=== PATIENT | female | born 1960 | race African-American/Black ===

== ENCOUNTER 2018-10-12 13:13 | Emergency (ER) | payer OTHER ==
--- NOTE | 2018-10-12 14:17 | RAD REPORT ---
EXAM DESCRIPTION: RAD - Pelvis - 10/12/2018 1:58 pm CLINICAL HISTORY: Trauma, fall, pelvic and hip pain COMPARISON: None. TECHNIQUE: AP imaging of the pelvis was obtained. FINDINGS: No fracture of the bony pelvis. SI joints and pubic symphysis show minimal degenerative ch abel with no acute finding. Minimal degenerative change at each hip joint. No fracture or dislocation of either proximal femur. No suspicious soft tissue finding. IMPRESSION: Negative pelvis for acute finding
--- NOTE | 2018-10-12 14:18 | RAD REPORT ---
EXAM DESCRIPTION: RAD - Lumbar Spine 3 Views - 10/12/2018 2:02 pm CLINICAL HISTORY: Trauma, back pain, left hip pain COMPARISON: Lumbar spine October 2010 FINDINGS: A three-view lumbar spine examination was performed. Lumbar bodies are normal in height an d alignment. No fracture or acute bony process seen. L3-4 disc space narrowing is present progressive from 2010. Sclerotic changes involve the endplates at this disc level. Posterior endplate spurring e ncroaches into the central canal also appearing progressive from 2010. Degenerative changes have deve loped at the L4-5 disc level without a significant loss in disc height. This is new from the prior st udy. Facet joint degenerative changes are present. No pars defects identified. IMPRESSION: No compression fracture or acute lumbar finding. L3-4 and L4-5 significant degenerative disc disease progressive from 2010.
--- NOTE | 2018-10-12 14:20 | RAD REPORT ---
EXAM DESCRIPTION: RAD - Hip Left 2 View - 10/12/2018 1:58 pm CLINICAL HISTORY: Trauma, left hip pain COMPARISON: October 2010 FINDINGS: AP and frogleg views of the left hip were obtained. There is no fracture or dislocation. N o AVN or focal femoral head abnormality. Minimal hip joint degenerative changes are present not signi ficantly different from comparison. No periarticular abnormality. No suspicious soft tissue finding. IMPRESSION: Minimal degenerative change not significantly different from 2011. No acute finding.
--- NOTE | 2018-10-12 14:32 | EDPHYS ---
Physician Documentation [facility] Name: Savana Montiel Age: 58 yrs Sex: Female : 1960 Arrival Date: 10/12/2018 Time: 13:17 Bed 15 Private MD: ED Physician Andrés Guevara HPI: 10/12 13:29 This 58 yrs old Black Female presents to ER via Unassigned with complaints of Hip Pain. rn 13:29 The patient or guardian reports decreased range of motion, an injury, pain. that rn occurred at work, sustained from lifting or pulling, There is no obvious deformity, The patient is able to self ambulate. The patient is able to bear their full body weight. The complaints affect the left hip/groin. 13:30 Modifying factors: The symptoms are alleviated by remaining still, the symptoms are rn aggravated by any movement, weight bearing. Associated signs and symptoms: Loss of consciousness: the patient experienced no loss of consciousness, Pertinent negatives: abdominal pain, incontinence, weakness. Severity of symptoms: At their worst the symptoms were moderate, in the emergency department the symptoms are unchanged. The patient has not experienced similar symptoms in the past. Reports catching someone from falling, did not fall and suffer direct trauma, but did hear crack and immediate pain. Is ambulatory and hurts to walk. Is limping. Denies other trauma or pain. . Historical: - Allergies: 13:43 No Known Allergies; tw2 - Home Meds: 13:43 losartan 100 mg oral tab 1 tab once daily [Active]; carvedilol 25 mg oral tab 1 tab 2 tw2 times per day [Active]; atorvastatin 10 mg oral tab 1 tab once daily [Active]; nifedipine 30 mg Oral TbER 1 tab once daily [Active]; hydrochlorothiazide 25 mg Oral tab 1 tab once daily [Active]; Cymbalta 30 mg oral cpDR 1 cap once daily [Active]; gabapentin 100 mg oral cap 1 caps daily [Active]; amitriptyline 25 mg Oral tab 1 tab once daily [Active]; Tresiba FlexTouch U-100 100 unit/mL (3 mL) subcutaneous inpn 60 units daily for Type 2 Diabetes Mellitus [Active]; Trulicity 0.75 mg/0.5 mL subcutaneous pnij 0.5 mL once wkly [Active]; - PMHx: 13:43 Diabetes - IDDM; Hyperlipidemia; Hypertension; tw2 - PSHx: 13:43 Hysterectomy; Tubal ligation; Cholecystectomy; tw2 - Immunization history:: Adult Immunizations. - Social history:: Smoking status: . - Family history:: not pertinent. - Ebola Screening: : Patient denies exposure to infectious person. - Hospitalizations: : No recent hospitalization is reported. ROS: 13:30 Constitutional: Negative for fever, chills, and weight loss, Eyes: Negative for injury, rn pain, redness, and discharge, Neck: Negative for injury, pain, and swelling, Cardiovascular: Negative for chest pain, palpitations, and edema, Respiratory: Negative for shortness of breath, cough, wheezing, and pleuritic chest pain, Abdomen/GI: Negative for abdominal pain, nausea, vomiting, diarrhea, and constipation, Back: + left lower back pain : Negative for injury, bleeding, discharge, and swelling, MS/Extremity: + left hip pain Skin: Negative for injury, rash, and discoloration, Neuro: Negative for headache, weakness, numbness, tingling, and seizure. Exam: 13:30 Constitutional: This is a well developed, well nourished patient who is awake, alert, rn appears in pain MS/ Extremity: Pulses equal, no cyanosis. Neurovascular intact. Intact passive ROM, tender left hip and left perilumbar region, soft thighs without palpable hematoma. Neuro: Awake and alert, GCS 15, oriented to person, place, time, and situation. Cranial nerves II-XII grossly intact. Motor strength 5/5 in all extremities. Sensory grossly intact. Cerebellar exam normal. Normal gait. Vital Signs: 13:38 BP 123 / 76; Pulse 71; Resp 17; Temp 98.1(TE); Pulse Ox 100% on R/A; Weight 105.69 kg tw2 (R); Height 5 ft. 4 in. (162.56 cm); Pain 8/10; 14:39 BP 131 / 82; Pulse 76; Resp 17; Pulse Ox 100% on R/A; tw2 13:38 Body Mass Index 39.99 (105.69 kg, 162.56 cm) tw2 MDM: 13:25 Patient medically screened. rn 14:27 Differential diagnosis: hip fracture, femoral neck fracture, bursitis, arthritis, rn strain. Data reviewed: vital signs, nurses notes, radiologic studies, plain films, and as a result, I will discharge patient. Counseling: I had a detailed discussion with the patient and/or guardian regarding: the historical points, exam findings, and any diagnostic results supporting the discharge/admit diagnosis, radiology results, the need for outpatient follow up, to return to the emergency department if symptoms worsen or persist or if there are any questions or concerns that arise at home. Special discussion: I discussed with the patient/guardian in detail that at this point there is no indication for admission to the hospital. It is understood, however, that if the symptoms persist or worsen the patient needs to return immediately for re-evaluation. Based on the history and exam findings, there is no indication for further emergent testing or inpatient evaluation. I discussed with the patient/guardian the need to see the orthopedic surgeon for further evaluation of the symptoms. I discussed with the patient/guardian the need to see the primary care provider for further evaluation of the symptoms. 10/12 13:29 Order name: XRAY Hip LEFT 2 view; Complete Time: 14:26 rn 10/12 13:29 Order name: XRAY Pelvis; Complete Time: 14:26 rn 10/12 13:29 Order name: XRAY Lumbar Spine (3 Views); Complete Time: 14:26 rn Administered Medications: No medications were administered Disposition: 10/12/18 14:31 Discharged to Home. Impression: Strain of muscle, fascia and tendon of left hip, Strain of muscle, fascia and tendon of lower back. - Condition is Stable. - Discharge Instructions: Back Pain, Adult, Muscle Strain, Hip Pain. - Prescriptions for Tylenol- Codeine #3 300-30 mg Oral Tablet - take 1 tablet by ORAL route every 6 hours As needed; 20 tablet. Cyclobenzaprine 10 mg Oral Tablet - take 1 tablet by ORAL route every 8-12 hours As needed; 20 tablet. - Medication Reconciliation Form, Thank You Letter, Antibiotic Education, Prescription Opioid Use form. - Follow up: Private Physician; When: As needed; Reason: Recheck today's complaints, Re-evaluation by your physician. - Problem is new. - Symptoms have improved. Signatures: Dispatcher [employer] EDAndrés Carrera MD MD rn Wise, Tara, RN RN tw2 Corrections: (The following items were deleted from the chart) 14:40 14:31 10/12/2018 14:31 Discharged to Home. Impression: Strain of muscle, fascia and tw2 tendon of left hip; Strain of muscle, fascia and tendon of lower back. Condition is Stable. Forms are Medication Reconciliation Form, Thank You Letter, Antibiotic Education, Prescription Opioid Use. Follow up: Private Physician; When: As needed; Reason: Recheck today's complaints, Re-evaluation by your physician. Problem is new. Symptoms have improved. rn
--- NOTE | 2018-10-12 14:32 | ER ---
Nurse's Notes [facility] Name: Savana Montiel Age: 58 yrs Sex: Female : 1960 Arrival Date: 10/12/2018 Time: 13:17 Bed 15 Private MD: Diagnosis: Strain of muscle, fascia and tendon of left hip;Strain of muscle, fascia and tendon of lower back Presentation: 10/12 13:25 Presenting complaint: Patient states: I was helping my patient from falling and i dont tw2 know what happened but i heard something pop in my LEFT hip and the pain is into my groin and buttocks. Transition of care: patient was not received from another setting of care. Onset of symptoms was October 12, 2018. Risk Assessment: Do you want to hurt yourself or someone else? Patient reports no desire to harm self or others. Initial Sepsis Screen: Does the patient meet any 2 criteria? No. Patient's initial sepsis screen is negative. Does the patient have a suspected source of infection? No. Patient's initial sepsis screen is negative. Care prior to arrival: None. 13:25 Method Of Arrival: Ambulatory tw2 13:25 Acuity: JEAN 4 tw2 Triage Assessment: 13:37 General: Appears in no apparent distress. well groomed, Behavior is calm, cooperative, tw2 appropriate for age. Pain: Complains of pain in LEFT hip and groin. EENT: No signs and/or symptoms were reported regarding the EENT system. Neuro: Level of Consciousness is awake, alert, obeys commands, Oriented to person, place, time, situation. Cardiovascular: Denies chest pain, shortness of breath, Capillary refill < 3 seconds Patient's skin is warm and dry. Respiratory: Airway is patent Respiratory effort is even, unlabored, Respiratory pattern is regular, symmetrical. GI: No signs and/or symptoms were reported involving the gastrointestinal system. : No signs and/or symptoms were reported regarding the genitourinary system. Derm: Musculoskeletal: Circulation, motion, and sensation intact. Reports pain in LEFT hip. Historical: - Allergies: 13:43 No Known Allergies; tw2 - Home Meds: 13:43 losartan 100 mg oral tab 1 tab once daily [Active]; carvedilol 25 mg oral tab 1 tab 2 tw2 times per day [Active]; atorvastatin 10 mg oral tab 1 tab once daily [Active]; nifedipine 30 mg Oral TbER 1 tab once daily [Active]; hydrochlorothiazide 25 mg Oral tab 1 tab once daily [Active]; Cymbalta 30 mg oral cpDR 1 cap once daily [Active]; gabapentin 100 mg oral cap 1 caps daily [Active]; amitriptyline 25 mg Oral tab 1 tab once daily [Active]; Tresiba FlexTouch U-100 100 unit/mL (3 mL) subcutaneous inpn 60 units daily for Type 2 Diabetes Mellitus [Active]; Trulicity 0.75 mg/0.5 mL subcutaneous pnij 0.5 mL once wkly [Active]; - PMHx: 13:43 Diabetes - IDDM; Hyperlipidemia; Hypertension; tw2 - PSHx: 13:43 Hysterectomy; Tubal ligation; Cholecystectomy; tw2 - Immunization history:: Adult Immunizations. - Social history:: Smoking status: . - Family history:: not pertinent. - Ebola Screening: : Patient denies exposure to infectious person. - Hospitalizations: : No recent hospitalization is reported. Screenin:30 Abuse screen: Denies threats or abuse. Nutritional screening: No deficits noted. tw2 Tuberculosis screening: No symptoms or risk factors identified. Fall Risk None identified. Assessment: 13:46 Reassessment: see triage assessment. tw2 14:39 Reassessment: Patient appears in no apparent distress at this time. No changes from tw2 previously documented assessment. Patient and/or family updated on plan of care and expected duration. Pain level reassessed. Patient is alert, oriented x 3, equal unlabored respirations, skin warm/dry/pink. pt states "no pain medicine now but for when i get home and can rest". Vital Signs: 13:38 BP 123 / 76; Pulse 71; Resp 17; Temp 98.1(TE); Pulse Ox 100% on R/A; Weight 105.69 kg tw2 (R); Height 5 ft. 4 in. (162.56 cm); Pain 8/10; 14:39 BP 131 / 82; Pulse 76; Resp 17; Pulse Ox 100% on R/A; tw2 13:38 Body Mass Index 39.99 (105.69 kg, 162.56 cm) tw2 ED Course: 13:17 Patient arrived in ED. mr 13:25 Andrés Guevara MD is Attending Physician. rn 13:25 Bed in low position. Call light in reach. Side rails up X2. Adult w/ patient. Pulse ox tw2 on. NIBP on. 13:30 Cassy Quinones, MARIA T is Primary Nurse. tw2 13:36 Triage completed. tw2 13:36 Arm band placed on. tw2 13:57 XRAY Hip LEFT 2 view In Process Unspecified. EDMS 13:57 XRAY Pelvis In Process Unspecified. EDMS 13:57 XRAY Lumbar Spine (3 Views) In Process Unspecified. EDMS 14:40 No provider procedures requiring assistance completed. Patient did not have IV access tw2 during this emergency room visit. Administered Medications: No medications were administered Outcome: 14:31 Discharge ordered by . rn 14:40 Discharged to home via wheelchair, with family. tw2 14:40 Condition: stable 14:40 Discharge instructions given to patient, family, Instructed on discharge instructions, follow up and referral plans. no drinking with medication, no driving heavy equipment, medication usage, Demonstrated understanding of instructions, follow-up care, medications, Prescriptions given X 2. 14:40 Patient left the ED. tw2 Signatures: Dispatcher [employer] [facility] Belem King Andrés Lockett MD MD rn Wise, Tara, RN RN tw2
[2018-10-12 15:29] VITALS: TEMP 98.1; O2SAT 100
[2018-10-12 15:31] VITALS: BP 131/82
== END 2018-10-12 14:40 | disposition home or self-care (01) ==
LOC: ER 13:13
DX: S76.012A Strain of muscle, fascia and tendon of left hip, initial encounter (principal); S39.012A Strain of muscle, fascia and tendon of lower back, initial encounter; I10 Essential (primary) hypertension; E11.9 Type 2 diabetes mellitus without complications; E78.5 Hyperlipidemia, unspecified; Z79.4 Long term (current) use of insulin
CPT/HCPCS: 72100; 72170; 99283